=== PATIENT | female | born 1955 | race Caucasian/White ===

== ENCOUNTER → 2016-04-30 | Outpatient (CLI) | payer OTHER ==
[~2016-04-30] MED LIST: CALAN; DILANTIN
--- NOTE | ~2016-04-30 | MY11 ---
[facility] A Service of [facility] RADIOLOGY TEXT RESULTS PATIENT: LUZ FREIRE LOCATION: [facility] : 57 UNIT #: [id number] AGE: [address]: Harinder Anderson MD SEX: F ORDER DR: [id number] [facility] [address] [place], [place] [address] [id number] O MR#: [id number] Acc #: [id number] NAME: LUZ FREIRE : 1955 SEX: F STUDY DATE/TIME: 04/30/2016 16:36 UNIT: [facility] ROOM: STUDY DESCRIPTION: MY Mammogram Screening Dig Fransico Attending Physician: Harinder Anderson M.D. Referring Physician: Harinder Anderson M.D. Ordering Physician: Harinder Anderson M.D. Primary Care Physician: Harinder Anderson M.D. MEDICAL IMAGING REPORT This report is preliminary unless electronic signature is present EXAM Bilateral digital screening mammogram with CAD, 04/30/2016 INDICATION 60-year-old female for routine screening. No reported problems and no personal history of breast cancer. Family history positive in sisters. No surgeries. TECHNIQUE CC and MLO views of the breasts were obtained and reviewed with an FDA-approved CAD device. COMPARISON 04/18/2015, 03/19/2014, 08/04/2011 FINDINGS Breast parenchyma is composed of scattered fibroglandular densities and the pattern is unchanged. There is no new dominant nodule, mass or suspicious cluster of microcalcifications. Benign calcifications are present. IMPRESSION Benign screening mammogram. One year followup recommended. Patients over the age of 40 are entered into a reminder system with target due date for the next mammogram. A result letter will also be sent to the patient. BIRADS: 2 Benign Finding Dictated by... Audi Daley M.D. [facility] A Service of [facility] RADIOLOGY TEXT RESULTS PATIENT: LUZ FREIRE LOCATION: [facility] : 57 UNIT #: [id number] AGE: [address]: Harinder Anderson MD SEX: F ORDER DR: THIS IS AN ELECTRONICALLY VERIFIED REPORT Audi Daley M.D. at 05/01/2016 11:20 AM LUIS/dex TD: 05/01/2016 10:54 JOB #: [id number] MEDICAL IMAGING REPORT COPY
== END | disposition home or self-care (01) ==
LOC: CWCC 16:13
DX: Z12.31 Encounter for screening mammogram for malignant neoplasm of breast (principal); Z80.3 Family history of malignant neoplasm of breast
CPT/HCPCS: G0202